=== PATIENT | female | born 1990 | race African-American/Black ===

== ENCOUNTER 2025-03-28 06:22 | Emergency (ER) | payer SELFPAY ==
[2025-03-28 06:24] VITALS: BP 127/90
--- NOTE | 2025-03-28 06:58 | ED.GENMED ---
History of Present Illness
General
Chief Complaint: Throat Problem
Source: patient
Exam Limitations: none
Time Seen by Provider: 03/28/25 06:56
Nursing documentation reviewed up to this point in time: agreed with
History of Present Illness
History of Present Illness:
35 yo female w hx of migraines, PTSD presents with facial swelling noticed upon waking at 4 a.m. today. She describes the swelling as involving only her lower face/lips and her throat is 'sore.' Denies difficulty swallowing or speaking. Sore throat
started last night around 8 p.m. She has a generalized headache 01/11, describing it as a frontal headache typically associated with her migraines, as well as feeling febrile. She reports no difficulty eating or drinking. The patient denies any
vomiting, diarrhea, or skin rashes. Her energy levels have been adequate. Her conjunctiva appear reddened, which she associates with her headaches. No recent travel, no known exposures/medications, no known sick contacts.
Past History
Past History
ED Past Medical History: Other (PTSD, chronic low back pain, migraines)
ED Past Surgical History: None and Orthopedic (Lumbar spine surgery, spinal stimulator wires implanted August 27)
Social History
Tobacco: Non-smoker
Alcohol: Occasional
Personal: Single
Living: with family
Employment: Employed
Review of Systems
Review of Systems
Allergies reviewed?: Yes
All Other Systems: ROS reviewed and negative except as documented in HPI and ROS
Constitutional: Reports fever; Denies chills
EENT: Reports sore throat
Respiratory: Denies trouble breathing
Cardiac: Denies chest pain
ABD/GI: Denies abdominal pain, nausea, vomiting or diarrhea
Skin: Reports other (swelling of lips and lower face, tongue)
Neurological: Reports headache; Denies dizzy, weakness or numbness
Phy Exam
Physical Exam
Physical Exam:
GENERAL: No acute distress. A&Ox3.
CONSTITUTIONAL: Afebrile.
EYES: clear, conjunctivae injected
ENMT: moist mucus membranes, Pharynx nl, TMs normal. Lips are swollen, subjective tongue swelling, nothing notable on exam. Speaking and swallowing well
RESPIRATORY: Regular respirations, nonlabored, lungs clear.
CARDIOVASCULAR: Regular rate and rhythm, no murmurs, no rubs.
GI: Soft, nontender, normal BS
MUSCULOSKELETAL: Moves with ease. Well perfused.
SKIN: Warm, dry, normal
PSYCH: Normal mood and affect. Well kept, interactive and appropriate
NEUROLOGIC: Awake, alert and oriented. No focal neurological deficits
Course
Orders/Labs/Results
Orders:
Orders
03/28/25 06:34
COVID-19 Antigen Urgent
Source: Nasal Swab
INF RAPID [Influenza A+B Rapid Molecular] Urgent
VIJAY Source: Nasal Swab
Specimen Description:
03/28/25 07:15
Dexamethasone Sod Phosphate [Decadron] 10 mg IV NOW STA
Ketorolac [Toradol] 15 mg IV NOW STA
03/28/25 07:16
0.9% Sodium Chloride 1000 ml [Nss] 1,000 ml IV BOLUS
03/28/25 07:25
Complete Blood Count/With Diff Urgent
Comprehensive Metabolic Panel Urgent
Monotest Urgent
Comment: ADD ON
03/28/25 07:27
Rapid Strep Group A Urgent
VIJAY Source: Throat/Pharynx
Specimen Description:
Date Specimen was Collected: 03/28/25
Time Specimen was Collected: 07:26
Throat Culture [Throat Culture, Comprehensive] Urgent
VIJAY Source: Throat/Pharynx
Specimen Description:
Date Specimen was Collected: 03/28/25
Time Specimen was Collected: 07:26
03/28/25 09:43
Add On- LAB Urgent
Tests Added?: Snyder test
Abnormal Lab Results
03/28/25
07:25
MCH 31.9 H pg
(27.0-31.0)
Absolute Lymphs (auto) 0.7 L 10^3/uL
(1.2-3.4)
Neutrophils % 86.9 H %
(42.2-75.2)
Lymphocytes % 9.8 L %
(20.5-51.1)
Chloride 108 H mmol/L
(98-107)
03/28/25 07:25
03/28/25 07:25
Vital Signs
Initial and Last Documented VS:
Initial Vital Signs
Temp Pulse Resp BP Pulse Ox
99.9 F 123 16 127/90 97
03/28/25 06:24 03/28/25 06:24 03/28/25 06:24 03/28/25 06:24 03/28/25 06:24
Last Documented Vital Signs
Temp Pulse Resp BP Pulse Ox
99.9 F 92 26 114/80 97
03/28/25 06:24 03/28/25 09:45 03/28/25 09:45 03/28/25 09:00 03/28/25 09:45
MDM/Problems Addressed
Differential Diagnosis Includes:
Angioedema, viral vs strep pharyngitis, allergic reaction, migraine vs sinus vs tension headache.
MDM/Problems Addressed:
35 yo female w hx of migraines, PTSD presents with facial swelling noticed upon waking at 4 a.m. today. She describes the swelling as involving only her lower face/lips and her throat is 'sore.' Denies difficulty swallowing or speaking. Sore throat
started last night around 8 p.m. She has a generalized headache 6/10, describing it as a frontal headache typically associated with her migraines, as well as feeling febrile. She reports no difficulty eating or drinking. The patient denies any
vomiting, diarrhea, or skin rashes. Her energy levels have been adequate. Her conjunctiva appear reddened, which she associates with her headaches. No recent travel, no known exposures/medications, no known sick contacts.
Pt took Benadryl 1 hour [employer] with no relief.
Plan:
- Administer intravenous fluids.
- Conduct basic blood work.
- Obtain throat culture to test for streptococcal infection.
- Administer Decadron (a corticosteroid) to reduce swelling.
- Administer Toradol (a non-steroidal anti-inflammatory drug) intravenously for headache relief.
8:00 AM:
CBC with no clinically significant abnormality
CMP: Normal
COVID-negative, flu neg
9:30 a.m.
Rapid strep neg
10:45 a.m.
In to re evaluate pt
States she is feeling after IVFs, Toradol and Decadron. 'much better.' Headache and sore throat are gone, eyes are clear, lips are improved
Most likely viral illness
*Pulse Oximetry
SaO2: 97
Oxygen Mode of Delivery: Room air
Patient hypoxic: no
*Critical Care Note
Total Time (30-74mins, 75-104mins- exclusive of procedures): Not Applicable
ED Attending Note
-
Portions of this chart may have been created with voice recognition software.� Occasional wrong word or��sound alike� substitutions may have occurred due to the inherent limitations of voice recognition software.
Discharge Plan
Departure
Patient Disposition: Home (Routine Discharge)
Date of Disposition: 03/28/25
Time of Disposition: 10:49
Patient with high blood pressure during this ER visit?: No
Condition: Good
Discharge Problem:
Viral illness, Swelling of both lips, Pharyngitis
Instructions: Sore Throat, Adult (DC), Fever in adults - ED (DC)
Prescriptions:
New
prednisone 20 mg tablet
40 mg PO DAILY Qty: 6 0RF
No Action
prazosin 1 mg Capsule
1 mg PO HS
Patient Comments:
04/16/2022: TAKEN W/ 2MG = 3MG
fluoxetine [Prozac] 20 mg Capsule
60 mg PO DAILY
Referrals:
Jacob Haskins DO [Family Provider, Internal Medicine] - Follow up in 2-3 days
Stand Alone Forms: Return to Work
Activity Restrictions/Additional Instructions:
As we discussed, your symptoms are most likely from a viral illness. I am not sure what caused the lip swelling, if you can think about any new products or exposures that could be the offending element, I would stop them
Tylenol or ibuprofen as needed for headache, sore throat, general aches
Drink plenty of fluids
I sent a prescription to your pharmacy for prednisone 40 mg a day for the next 3 days, started tomorrow as you were given a dose here today.
Interventions
Interventions:
*Risk Screen - Suicide Last Done: 03/28/25 06:26
*General Assessment Last Done: 03/28/25 07:05
*Neglect/Abuse Screening Last Done: 03/28/25 06:26
*ED- Fall Risk Assessment Last Done: 03/28/25 06:26
*ED COVID-19 Vaccine History Last Done: 03/28/25 06:26
*Nursing Disposition Last Done: 03/28/25 11:16
ED-EENT Assessment Last Done: 03/28/25 07:48
ED- Pulmonary Assessment Last Done: 03/28/25 07:05
Discharge Date and Time
Discharge Date/Time: 03/28/25 11:17
Print Language: CROATIAN
[2025-03-28 07:22] LABS: COVID-19 Antigen Negative (Negative)
[2025-03-28] MEDS: NSS 1000 IV (07:37)
[2025-03-28] MEDS: DECADRON 10 MG IV (07:38)
[2025-03-28] MEDS: TORADOL 15 MG IV (07:38)
[2025-03-28 07:52] VITALS: BP 101/69
[2025-03-28 07:54] VITALS: BMI 27.0
[2025-03-28 08:00] VITALS: BP 111/76
[2025-03-28 08:14] LABS: Hematocrit 39.2 % (37.0-47.0); Hemoglobin 13.6 g/dL (12.0-16.0); Mean Corp Hgb Conc. 34.7 g/dL (33.0-37.0); Mean Corpuscular Volume 91.8 fL (81.0-99.0); Nucleated Red Blood Cells % 0 %; Platelet Count 286 10^3/uL (130-400); Red Cell Dist. Width 12.4 % (11.5-14.5)
[2025-03-28 08:38] LABS: ALT (SGPT) 19 U/L (0-35); AST (SGOT) 23 U/L (14-36); Albumin 4.1 g/dl (3.5-5.0); Alkaline Phosphatase 82 U/L (38-126); Blood Urea Nitrogen 11 mg/dl (7-17); Calcium 9.2 mg/dl (8.4-10.2); Carbon Dioxide 22 mmol/L (22-30); Chloride 108 mmol/L (98-107); Estimated Creatinine Clearance 88 ml/min; Glucose 96 mg/dl (70-99); Potassium 4.0 mmol/L (3.5-5.1); Sodium 136 mmol/L (135-145); Total Protein 7.5 g/dl (6.3-8.2); eGFR > 60.00
[2025-03-28 09:00] VITALS: BP 114/80
== END 2025-03-28 11:17 | disposition home or self-care (01) ==
LOC: EMR 06:22
PROVIDERS: Registered Nurse; EMERGENCY PHYSICIAN Emergency Medicine; FAMILY PHYSICIAN Internal Medicine
DX: B34.9 Viral infection, unspecified (principal); R22.0 Localized swelling, mass and lump, head; J02.9 Acute pharyngitis, unspecified; F43.10 Post-traumatic stress disorder, unspecified; M54.50 Low back pain, unspecified; G89.29 Other chronic pain
CPT/HCPCS: 99284; 96374; 96375; 96361; 80053; 85025; 86308; 87070; 87502; 87811; 87880